=== PATIENT | male | born 1960 | race Caucasian/White ===

== ENCOUNTER 2021-06-04 17:37 | Inpatient (IN) | payer OTHER ==
[~2021-06-04] VITALS: Ht 182.9 cm; Wt 147.0 kg
[~2021-06-04 17:37] MED LIST: GLIPIZIDE ER5 MG PO; JARDIANCE25 MG PO; LIPITOR 10MG TA10 MG PO; METFORMIN HCL500 MG PO; NORVASC5 MG PO; TRADJENTA5 MG PO
[2021-06-04] MEDS ORDERED: VALSARTAN-HCTZ1 EAC1 PO (18:23)
[2021-06-04] MEDS ORDERED: TRULICITY1.5 MG/0.5 SC (18:24)
[2021-06-04] MEDS ORDERED: LANTUS **100 UNITS/ SC (18:24)
[2021-06-04] MEDS ORDERED: FLOMAX0.4 MG PO (18:25)
[2021-06-04 19:29] LABS: BASOPHIL 0.3 % (0-2); EOSINOPHIL 0.4 % (0-5); HCT 33.8 % (42.0-52.0); HGB 10.9 g/dl (13.2-18.0); LYMPHOCYTE 8.4 % (15-48); MCH 26.9 pg (25.0-31.0); MCHC 32.2 g/dL (32.0-36.0); MCV 83.5 fL (78.0-100.0); MONOCYTE 7.4 % (0-12); MPV 9.4 fL (6.0-9.5); NEUTROPHIL 82.7 % (41-80); NRBC 0; PLT 299 K/uL (150-400); RBC 4.05 M/uL (4.70-6.00); RDW 13.7 % (11.5-14.0); WBC 16.4 K/uL (4.0-10.5)
[2021-06-04 19:33] LABS: ALBUMIN 2.3 g/dL (3.4-5.0); BILIRUBIN - TOTAL 0.4 mg/dL (0.2-1.0); BUN/CREAT RATIO (CALC) 15.8 RATIO; CREATININE 1.58 mg/dL (0.67-1.17); GLOBULIN (CALCULATION) 5.5 g/dL; MAGNESIUM 1.9 mg/dL (1.8-2.4); POTASSIUM 3.9 mmol/L (3.5-5.1); TOTAL PROTEIN 7.8 g/dL (6.4-8.2)
[2021-06-05 06:04] LABS: BASOPHIL 0.3 % (0-2); EOSINOPHIL 1.4 % (0-5); HCT 28.8 % (42.0-52.0); HGB 9.4 g/dl (13.2-18.0); LYMPHOCYTE 17.9 % (15-48); MCH 27.1 pg (25.0-31.0); MCHC 32.6 g/dL (32.0-36.0); MONOCYTE 10.8 % (0-12); MPV 9.4 fL (6.0-9.5); NRBC 0; PLT 271 K/uL (150-400); RBC 3.47 M/uL (4.70-6.00); RDW 13.7 % (11.5-14.0); WBC 14.7 K/uL (4.0-10.5)
[2021-06-05 06:23] LABS: CREATININE 1.62 mg/dL (0.67-1.17); POTASSIUM 3.6 mmol/L (3.5-5.1)
--- NOTE | 2021-06-05 11:30 | NUR ---
SPOKE WITH DR KRISHNAN REGARDING CONSULT WITH PRODUCT DESIGN SPECIALIST, DR CHAVES. ADVISED THIS RN HAD LEFT VOICEMAIL WITH OFFICE EARLIER THIS MORNING AND HAD JUST TRIED CALLING OFFICE AGAIN. VOICE RECORDING PLACED CALL ON HOLD AND NO ONE PICKED UP CALL. ADVISED DR KRISHNAN THERE HAS BEEN NO NOTIFICATION FROM DR CHAVES
--- NOTE | 2021-06-05 12:24 | NUR ---
06/05/21 1130 PICC LINE ORDER RECEIVED FOR PICC LINE PLACEMENT. RISKS AND BENEFITS EXPLAINED. CONSENT SIGNED. PT'S LEFT UPPER ARM BASILIC VEIN VISUALIZED USING THE SITE RITE 6 ULTRA MACHINE. PT THEN PREPPED AND DRAPED IN STERILE FASHION. THE AREA WAS CLEANSED WITH CHLORAPREP. THE AREA WAS NUMBED WITH 1CC OF 1% LIDOCAINE. A 21GA NEEEDLE WAS USED. GOOD BLOOD RETURN. THE GUIDE WIRE THREADED EASILY. THE NEEDLE WAS REMOVED AND THE SHEATH WAS PLACED OVER THE WIRE. THE WIRE WAS THEN REMOVE AND A CAP WAS PLACED ON THE END. THE PT WAS MEASURED FOR THE PICC PLACEMENT. PICC WAS TRIMMED AT 55CM AND FLUSHED. THE INTRODUCER WAS REMOVED AND THE PICC CATHETER WAS GUIDED INTO POSITION. THE SHEATH WAS PEELED BACK. A STERILE BIOPATCH WAS PLACED AT THE INSERTION SITE. A STAT LOCK WAS PLACED ON. A STERILE TEGADERM WAS PLACED OVER THE PICC LINE. A STAT PORTABLE CHEST XRAY WAS OBTAINED. PER RADIOLOGIST THE PICC LINE IS IN THE SVC. THE STYLET WAS REMOVED AND THE A CLEAR CAP WAS FLUSHED AND PLACED ON THE END. PT HAS A 4FR SINGLE LUMEN POWER PICC. TRIMMED AT 55 CM, INSERTION 1 CM, BICEPS 43 CM. GOOD BLOOD RETURN NOTED. PT TOLERATED WELL. REPORT TO Darryl BENTON RN
--- NOTE | 2021-06-05 15:31 | NUR ---
06/05/21 Discharge is anticipated for 06/06/21. Patient will require home IV antibiotics. Patient chose [facility]; they denied due to lack of nursing coverage. [facility] accept patient and patient agreed. Affliation understood. - Please call Sridevi Adamson, , [facility] on-call nurse with IV medications. H&P, current meds, labs, and demographics have already been faxed to [facility]. - They will need orders and a vancy trough faxed to them.
[2021-06-06 05:10] LABS: BASOPHIL 0.6 % (0-2); EOSINOPHIL 2.4 % (0-5); HCT 26.9 % (42.0-52.0); HGB 8.8 g/dl (13.2-18.0); LYMPHOCYTE 18.9 % (15-48); MCH 27.2 pg (25.0-31.0); MCHC 32.7 g/dL (32.0-36.0); MPV 9.2 fL (6.0-9.5); NEUTROPHIL 65.4 % (41-80); NRBC 0; PLT 244 K/uL (150-400); RBC 3.24 M/uL (4.70-6.00); RDW 13.7 % (11.5-14.0); WBC 10.7 K/uL (4.0-10.5)
[2021-06-06 05:30] LABS: BUN/CREAT RATIO (CALC) 15.2 RATIO; CREATININE 1.71 mg/dL (0.67-1.17); MAGNESIUM 1.9 mg/dL (1.8-2.4); POTASSIUM 3.7 mmol/L (3.5-5.1)
[2021-06-06] MEDS ORDERED: [UNRECOGNIZED DRUG - SUPPLY] TOP (15:52)
[2021-06-06] MEDS ORDERED: LEVAQUIN750 MG PO (15:52)
[2021-06-06 15:53] LABS: IRON % SATURATION 10.2 %SAT (20-50)
[2021-06-06 16:21] LABS: FOLIC ACID (SERUM) 19.9 ng/mL (8.6-58.9)
[2021-06-06] MEDS ORDERED: POLY-IRON150 MG PO (16:51)
[2021-06-06] MEDS ORDERED: HEPARIN 3010 UNIT/1 IV (17:05)
--- NOTE | 2021-06-06 18:10 | NUR ---
1700--DISCUSSED DISCHARGE INSTRUCTIONS WITH PATIENT AND . INSTRUCTED ON WOUND CARE DRESSING AND CARE OF PICC LINE. INFORMED PATIENT ON PRESCRIPTIONS, APTS NEEDED TO BE MADE AND HOME HEALTH [facility]ARE. PT IN STABLE CONDITION. WOUND DRESSING DONE WITH MD AT BEDSIDE TO ASSESS APPEARANCE OF WOUND. CRUTCHES GIVEN TO PATIENT TO TAKE HOME WHEN AMBULATING. WILL FAX [facility] TO [facility]. D/C HOME WITH
== END 2021-06-06 17:35 | disposition home health service (06) | DRG 872 ==
LOC: FMS 17:37
PROVIDERS: ADMIT Internal Medicine
PROC: 02HV33Z Insertion of Infusion Device into Superior Vena Cava, Percutaneous Approach (ICD-10-PCS; principal; 2021-06-05)
DX: A41.81 Sepsis due to Enterococcus (principal); L03.115 Cellulitis of right lower limb; L03.116 Cellulitis of left lower limb; N17.9 Acute kidney failure, unspecified; E11.65 Type 2 diabetes mellitus with hyperglycemia; E11.22 Type 2 diabetes mellitus with diabetic chronic kidney disease; Z20.822 Contact with and (suspected) exposure to COVID-19; I12.9 Hypertensive chronic kidney disease with stage 1 through stage 4 chronic kidney disease, or unspecified chronic kidney disease; N18.30 Chronic kidney disease, stage 3 unspecified; D50.9 Iron deficiency anemia, unspecified; S91.332A Puncture wound without foreign body, left foot, initial encounter; E78.5 Hyperlipidemia, unspecified; G47.30 Sleep apnea, unspecified; K21.9 Gastro-esophageal reflux disease without esophagitis; E11.40 Type 2 diabetes mellitus with diabetic neuropathy, unspecified; N40.0 Benign prostatic hyperplasia without lower urinary tract symptoms; M19.90 Unspecified osteoarthritis, unspecified site; Z99.81 Dependence on supplemental oxygen; Z79.4 Long term (current) use of insulin; Z79.899 Other long term (current) drug therapy; Z87.891 Personal history of nicotine dependence; W22.8XXA Striking against or struck by other objects, initial encounter
CPT/HCPCS: 36415; 71045; 73719; 80048; 80053; 80202; 82607; 82746; 82962; 83540; 83550; 83605; 83735; 84145; 85025; 86140; 87070; 87075; 87077; 87186; 87205; 93971; 94010; A9579; C1751; J0360; J1642; J1650; J1956; J3370; J3480; J7030; J7040; U0002